=== PATIENT | male | born 1955 | race Caucasian/White ===

== ENCOUNTER 2017-06-17 11:13 | Emergency (ER) | payer OTHER ==
[~2017-06-17] VITALS: Ht 193 cm; Wt 97.5 kg
[~2017-06-17 11:13] MED LIST: LORT7.5T3 PO; PROM25SU8 PO; Z.0.NO CURRENT MEDS
[2017-06-17 11:24] VITALS: BP 160/78; PULSE 79; RESP 16; TEMP 97.8; O2SAT 99
[2017-06-17] MEDS ORDERED: ROBA500T PO (11:57)
[2017-06-17] MEDS ORDERED: PRED10 PO (11:57)
--- NOTE | 2017-06-17 11:57 | PD ---
HPI Chief Complaint: Musculoskeletal Complaint Time Seen by Provider: 11:45 Travel History International Travel<30 days: No Contact w/Intl Traveler<30days: No Traveled to known affect area: No History of Present Illness HPI 62-year-old male presents to emergency department complaining of right shoulder pain. 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 Says the pain increases with movement of his right shoulder and decreases with rest. Patient has used Aleve without significant relief. Describes pain as moderate. Says she feels a "lump" under his right shoulder blade. Patient denies injuries or trauma. Denies significant or neck trauma previously. States he does have full range of motion of the shoulder. States he's never had imaging of his neck, shoulder, or back previously. Patient is here today because she was like evaluation and possibly some imaging studies. Denies chronic medical issues or medications. Denies shortness of breath or chest pain. PFSH Past Medical History Medical History: Denies Significant Hx Diminished Hearing: No Immunizations Current: Yes Tetanus Vaccination: < 5 Years Influenza Vaccination: No Social History Alcohol Use: Yes (WEEKENDS) Tobacco Use: No Substance Use: No Allergies-Medications (Allergen,Severity, Reaction): Coded Allergies: No Known Allergies (Verified Allergy, Mild, 06/17/17) Reported Meds & Prescriptions Reported Meds & Active Scripts Active Prednisone 10 Mg Tab 10 Mg PO DAILY 5 Days Robaxin (Methocarbamol) 500 Mg Tab 500 Mg PO TID 3 Days Review of Systems Except as stated in HPI: all other systems reviewed are Neg Physical Exam Narrative GENERAL: Well-nourished in no apparent distress SKIN: Focused skin assessment warm/dry. HEAD: Atraumatic. Normocephalic. EYES: Pupils equal and round. No scleral icterus. No injection or drainage. ENT: No nasal bleeding or discharge. Mucous membranes pink and moist. NECK: Trachea midline. No JVD. No midline tenderness. Mild right paraspinous muscle spasms with TTP CARDIOVASCULAR: Regular rate and rhythm. No murmur appreciated. RESPIRATORY: No accessory muscle use. Clear to auscultation. Breath sounds equal bilaterally. MUSCULOSKELETAL: No obvious deformities. No clubbing. No cyanosis. No edema. No CVA tenderness Right upper extremity and shoulder- significant muscle spasm of the right thoracic paraspinous muscles with TTP. Reproducing the pain. Neurovascularly intact. Full range of motion of the shoulder without deficits. NEUROLOGICAL: Awake and alert. No obvious cranial nerve deficits. Motor grossly within normal limits. Normal speech. BACK: No CVA tenderness. No rash. No point tenderness on palpation of the spine. PSYCHIATRIC: Appropriate mood and affect; insight and judgment normal. Data Data Last Documented VS Vital Signs Date Time Temp Pulse Resp B/P (MAP) Pulse Ox O2 Delivery O2 Flow Rate FiO2 06/17/17 11:24 97.8 79 16 160/78 (105) 99 Orders Orders Prednisone (Deltasone) (06/17/17 12:00) Ketorolac Inj (Toradol Inj) (06/17/17 12:00) Ed Discharge Order (06/17/17 11:57) [facility] Medical Decision Making Medical Screen Exam Complete: Yes Emergency Medical Condition: Yes Differential Diagnosis Right thoracic spine muscle spasms, fracture, radiculopathy Narrative Course 62-year-old male presents to emergency department complaining of right shoulder pain. 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 Says the pain increases with movement of his right shoulder and decreases with rest. Patient has used Aleve without significant relief. Describes pain as moderate, radiating from the neck to the elbow. Says she feels a "lump" under his right shoulder blade. Patient denies injuries or trauma. Denies significant or neck trauma previously. States he does have full range of motion of the shoulder. States he's never had imaging of his neck, shoulder, or back previously. Patient is here today because she was like evaluation and possibly some imaging studies. Denies chronic medical issues or medications. Denies shortness of breath or chest pain. Vital signs stable. Physical exam findings consistent with muscle spasm likely contributing to some of the tingling down the right upper extremity. Patient given slight prednisone and ketorolac in the emergency department. Patient's given prednisone and Robaxin for outpatient use. Advised follow-up with primary care physician as there is no emergent condition to perform these x -rays or images today. No history of trauma. Patient understood and agrees and will comply. Advised to return to the emergency for worsening or persistent symptoms. Diagnosis Primary Impression: Muscle spasm Referrals: Orthopedist Primary Care Physician Additional Instructions: Perform light stretches of the lower and back and legs, and alternate heat and ice packs. If you develop increased pain, weakness, fever, chills, or bowel or bladder issues, return to the ED for further treatment and evaluation. Follow up with your primary care physician in 2-3 days. Take all medication as prescribed Scripts Prednisone (Prednisone) 10 Mg Tab 10 MG PO DAILY for 5 Days, #5 TAB 0 Refills Prov: Ginger De La Rosa 06/17/17 Methocarbamol (Robaxin) 500 Mg Tab 500 MG PO TID for Muscle Spasm for 3 Days, TAB 0 Refills Prov: Ginger De La Rosa 06/17/17 Disposition: 01 DISCHARGE HOME Condition: Stable Ginger De La Rosa Jun 17, 2017 11:57
[2017-06-17] MEDS ORDERED: KETOROLAC TROMETHAMINE 60 MG/2 ML (IM) VIAL IM ONE (12:00)
[2017-06-17] MEDS ORDERED: predniSONE 20 MG TAB PO ONE (12:00)
== END 2017-06-17 12:22 | disposition home or self-care (01) ==
LOC: PHEFT 11:13
DX: M62.838 Other muscle spasm (principal); Z79.899 Other long term (current) drug therapy
CPT/HCPCS: 96372; 99284; J1885; J7512